=== PATIENT | female | born 1990 | race Caucasian/White ===

== ENCOUNTER 2018-08-01 19:31 | Emergency (ER) | payer MEDICAID ==
[~2018-08-01] VITALS: Ht 180.3 cm; Wt 92.1 kg
[2018-08-01 21:12] LABS: Urine Bacteria NONE SEEN /hpf (None Seen); Urine Blood 3+ /uL (Negative); Urine Mucus FEW (None Seen); Urine WBC 323 /hpf (0 - 5)
[2018-08-01 21:14] LABS: Urine Specific Gravity 1.035 (1.001-1.035)
[2018-08-01 21:17] LABS: Basophils # (auto) 0 uL; Basophils % (auto) 0.7 % (0.0-2.0); Eosinophils # (auto) 0.1 uL; Eosinophils % (auto) 2.4 % (0.0-7.0); Hematocrit 40.7 % (36.0-46.0); Hemoglobin 14.2 g/dL (12.2-16.2); Lymphocytes # (auto) 2.1 uL; Lymphocytes % (auto) 33.9 % (10.0-50.0); Mean Corpuscular Hemoglobin 33.2 pg (28.0-32.0); Mean Corpuscular Hgb Conc. 34.9 g/dL (32.0-36.0); Mean Corpuscular Volume 95.3 fL (80.0-100.0); Monocytes # (auto) 0.6 uL; Monocytes % (auto) 10.6 % (0.0-12.0); Neutrophils # (auto) 3.2 uL; Neutrophils % (auto) 52.4 % (37.0-80.0); Nucleated Red Blood Cells % 0.1 %; Platelet Count (auto) 276 10^3/uL (140-450); Red Blood Cells 4.28 10^6/uL (4.0-5.20); Red Cell Distribution Width 12.4 % (11.8-14.3); White Blood Cell 6.1 10^3/uL (4.4-10.8)
[2018-08-01 21:19] VITALS: BP 114/85
[2018-08-01 21:26] LABS: Albumin 3.6 g/dL (3.4-5.0); BUN/Creatinine Ratio 16.9; Calcium 8.4 mg/dL (8.5-10.1); Potassium 3.6 mmol/L (3.5-5.1)
[2018-08-01 21:33] LABS: Bilirubin, Total 0.3 mg/dL (0.2-1.0); Total Protein 7.3 g/dL (6.4-8.2)
[2018-08-01 21:35] LABS: INR 0.93 (0.9-1.15); Partial Thromboplastin Time 23.2 sec (23.64-32.05); Prothrombin Time 10.1 sec (9.06-12.60)
== END 2018-08-01 22:35 | disposition home or self-care (01) ==
LOC: ER 19:35
DX: N93.9 Abnormal uterine and vaginal bleeding, unspecified (principal); N39.0 Urinary tract infection, site not specified
CPT/HCPCS: 36415; 80053; 81001; 84702; 85025; 85610; 85730; 86850; 86900; 86901

== ENCOUNTER 2018-11-13 13:14 | Emergency (ER) | payer MEDICAID ==
[~2018-11-13] VITALS: Ht 177.8 cm; Wt 96.2 kg
[2018-11-13 14:09] LABS: Urine Bacteria NONE SEEN /hpf (None Seen); Urine Blood 1+ /uL (Negative); Urine Specific Gravity 1.005 (1.001-1.035); Urine WBC 1 /hpf (0 - 5)
[2018-11-13 14:48] LABS: Albumin 3.8 g/dL (3.4-5.0); Calcium 8.5 mg/dL (8.5-10.1); Potassium 3.8 mmol/L (3.5-5.1)
[2018-11-13 14:53] LABS: BUN/Creatinine Ratio 10.4; Bilirubin, Total 0.4 mg/dL (0.2-1.0); Total Protein 7.6 g/dL (6.4-8.2)
[2018-11-13 14:57] LABS: Basophils # (auto) 0 uL; Basophils % (auto) 0.4 % (0.0-2.0); Eosinophils # (auto) 0.2 uL; Eosinophils % (auto) 3.2 % (0.0-7.0); Hematocrit 39.7 % (36.0-46.0); Hemoglobin 13.8 g/dL (12.2-16.2); Lymphocytes # (auto) 2.2 uL; Lymphocytes % (auto) 30.4 % (10.0-50.0); Mean Corpuscular Hemoglobin 32.7 pg (28.0-32.0); Mean Corpuscular Hgb Conc. 34.8 g/dL (32.0-36.0); Monocytes # (auto) 0.7 uL; Monocytes % (auto) 9.7 % (0.0-12.0); Neutrophils % (auto) 56.3 % (37.0-80.0); Nucleated Red Blood Cells % 0.1 %; Platelet Count (auto) 269 10^3/uL (140-450); Red Blood Cells 4.22 10^6/uL (4.0-5.20); Red Cell Distribution Width 12.1 % (11.8-14.3); White Blood Cell 7.2 10^3/uL (4.4-10.8)
[2018-11-13 20:30] VITALS: BP 109/66
== END 2018-11-13 21:00 | disposition home or self-care (01) ==
LOC: ER 13:14
DX: N83.202 Unspecified ovarian cyst, left side (principal)
CPT/HCPCS: 36415; 76856; 80053; 81001; 81025; 84702; 85025